=== PATIENT | female | born 1960 ===

== ENCOUNTER 2017-03-05 22:21 | Emergency (ER) | payer MEDICARE, OTHER ==
[2017-03-05 22:40] VITALS: TEMP 97
[2017-03-06 00:29] VITALS: BP 98/79; PULSE 59; RESP 17; O2SAT 100
== END 2017-03-05 23:34 | disposition home or self-care (01) | DRG 605 ==
LOC: ED 22:21
DX: S30.0XXA Contusion of lower back and pelvis, initial encounter (principal); W01.0XXA Fall on same level from slipping, tripping and stumbling without subsequent striking against object, initial encounter
CPT/HCPCS: 99282; 99283

== ENCOUNTER 2017-06-16 16:04 | Emergency (ER) | payer OTHER ==
[2017-06-16] MEDS ORDERED: LORAZEPAM 0.5 MG TAB PO ONE (16:10)
[2017-06-16] MEDS ORDERED: LORAZEPAM 0.5 MG TAB ONE (16:11)
[2017-06-16 16:20] VITALS: RESP 20; TEMP 97.5
[2017-06-16 17:22] LABS: APPEARANCE,URINE Clear; BILIRUBIN,URINE NEGATIVE (NEGATIVE); COLOR,URINE Light yellow; GLUCOSE, URINE (UA) NEGATIVE (NEGATIVE); KETONES,URINE NEGATIVE (NEGATIVE); LEUKOCYTE ESTERASE ,URINE NEGATIVE (NEGATIVE); NITRATE,URINE NEGATIVE (NEGATIVE); OCCULT BLOOD,URINE NEGATIVE (NEG-TRACE); PH,URINE 7.5; UROBILINOGEN,URINE 0.2 (0.2-1.0 EU)
[2017-06-16] MEDS ORDERED: QUETIAPINE FUMARATE 25 MG TAB ONE (17:24)
[2017-06-16] MEDS ORDERED: QUETIAPINE FUMARATE 25 MG TAB PO SCH (17:30)
[2017-06-16 17:44] LABS: AMPHETAMINES NEGATIVE (NEGATIVE); METHADONE NEGATIVE (NEGATIVE); OPIATES(OP13) NEGATIVE (NEGATIVE); OXYCODONE(OXY) NEGATIVE (NEGATIVE); PROPOXYPHENE(PPX) NEGATIVE (NEGATIVE); RBC,URINE 0-2 (0-3AV/HPF); TRICYCLIC ANTIDEPRESSANTS POSITIVE (NEGATIVE); WBC,URINE 0-2 (0-5AV/HPF)
[2017-06-16 17:54] LABS: ALBUMIN 3.5 gm/dl (3.4-5.0); POTASSIUM 4.2 mMol/L (3.5-5.1); THYROID STIMULATING HORMONE 3.529 uIU/ml (0.358-3.740)
[2017-06-16 18:13] VITALS: O2SAT 98
[2017-06-16 18:14] VITALS: BP 120/68; PULSE 80
== END 2017-06-16 19:16 | disposition home or self-care (01) | DRG 885 ==
LOC: ED 16:04
DX: F32.2 Major depressive disorder, single episode, severe without psychotic features (principal)
CPT/HCPCS: 36415; 80053; 80305; 81001; 84443; 99283